=== PATIENT | female | born 1925 | race Caucasian/White ===

== ENCOUNTER 2017-06-01 18:26 | Emergency (ER) | payer BC ==
[~2017-06-01 18:26] MED LIST: ASPIRIN; CLONIDINE
[2017-06-01 20:38] VITALS: BP 135/86
== END 2017-06-01 20:30 | disposition home or self-care (01) ==
LOC: ED 18:26
DX: S61.412A Laceration without foreign body of left hand, initial encounter (principal); S80.02XA Contusion of left knee, initial encounter; I10 Essential (primary) hypertension; E78.5 Hyperlipidemia, unspecified; W01.0XXA Fall on same level from slipping, tripping and stumbling without subsequent striking against object, initial encounter; Y93.89 Activity, other specified; Y92.89 Other specified places as the place of occurrence of the external cause; Y99.8 Other external cause status; Z79.899 Other long term (current) drug therapy; Z79.1 Long term (current) use of non-steroidal anti-inflammatories (NSAID)
CPT/HCPCS: 90715; J2001; Q0092